=== PATIENT | male | born 1930 | race Caucasian/White ===

== ENCOUNTER 2016-11-27 10:04 | Emergency (ER) | payer MEDICARE, OTHER ==
--- NOTE | 2016-11-27 11:10 | XRAY Preliminary Report ---
Exam: XR Foot 3 View RT IMPRESSION: 1. Mild first metatarsal phalangeal joint osteoarthritis. 2. 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 3. No acute fracture or dislocation. [facility] SITE ID: [id number]
--- NOTE | 2016-11-27 11:13 | XRAY Report ---
EXAM: RIGHT FOOT RADIOGRAPHY EXAM DATE: 11/27/2016 10:51 AM. CLINICAL HISTORY: Right foot pain and swelling. COMPARISON: None. TECHNIQUE: 3 views. FINDINGS: Bones: Tiny plantar calcaneal enthesophyte. Joints: Mild first metatarsal phalangeal joint osteoarthritis. Moderate to severe narrowing at the th ird DIP joint and moderate narrowing at the third and fourth PIP joints. Soft Tissues: Normal. No soft tissue swelling. IMPRESSION: 1. Mild first metatarsal phalangeal joint osteoarthritis. 2. 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 3. No acute fracture or dislocation. [facility] Referring Provider Line: [phone] SITE ID: [id number]
--- NOTE | 2016-11-27 12:39 | Ultrasound Report ---
RIGHT LEG VENOUS DUPLEX: 11/27/2016 CLINICAL INDICATION: Right leg swelling. TECHNIQUE: Real-time sonographic vascular imaging was performed by the hot tar roofer through the right leg utilizing both color flow and Doppler spectral analysis. Multiple sales representative groceries static images w ere saved for review. FINDINGS: A right lower extremity venous sonogram is performed revealing the common femoral, superfic ial femoral, profunda femoris, and popliteal veins to be adequately visualized without intraluminal d efects. There is normal venous compression, augmentation, phasicity, and spontaneity of venous flow. In the calf, the visualized more cephalad portions of posterior tibial and peroneal veins are grossl y compressible, without filling defects. IMPRESSION: NO EVIDENCE OF DEEP VENOUS THROMBOSIS. JOB #: [id number] EXT JOB #:[id number]
--- NOTE | 2016-11-27 13:09 | ED Physician Documentation ---
PD HPI LOWER EXT INJURY - Stated complaint Stated Complaint: R FOOT PX/SWOLLEN - Chief complaint Chief Complaint: Ext Problem - History obtained from History obtained from: Patient, Family - History of Present Illness PD HPI LOW EXT INJURY LOCATION: Right, Foot Type of injury: Other (use in the garden) Where injury occurred: Home Timing - onset: How many days ago (4) Timing - duration: Days (4) Timing - details: Gradual onset, Still present Improved by: Rest, Immobilization Worsened by: Moving, Palpating Associated symptoms: Swelling Contributing factors: No: Anticoagulated Similar symptoms before: Has not had sx before Recently seen: Not recently seen - Additional information Additional information: 86 y/o male with a history of hypertension and arthritis who was in his yard on his hands and knees 5 days ago when he went to stand up he got his feet underneath him and feels that this is when he injured his foot. It did not hurt that much initially and over the next for 5 days it started to hurt more he has had a lot of swelling associated with it and he is limping and walking on his heel. He does have pain when he rolls his foot forward and the pain is centered over the metatarsals laterally. Review of Systems Constitutional: denies: Fever Eyes: denies: Decreased vision Ears: denies: Ear pain Nose: denies: Congestion Throat: denies: Sore throat Cardiac: denies: Chest pain / pressure, Palpitations Respiratory: denies: Dyspnea, Cough GI: denies: Abdominal Pain, Nausea, Vomiting : denies: Dysuria Skin: denies: Rash Musculoskeletal: reports: Extremity swelling, Joint swelling, Pain with weight bearing. denies: Neck pain, Back pain Neurologic: denies: Generalized weakness, Focal weakness, Numbness PD PAST MEDICAL HISTORY - Past Medical History Past Medical History: Yes Cardiovascular: Hypertension, High cholesterol - Past Surgical History Past Surgical History: Yes - Present Medications Home Medications: Ambulatory Orders Medication Instructions Recorded Confirmed Aspirin [Aspirin EC] 81 mg PO DAILY 11/27/16 11/27/16 Atorvastatin Calcium [Lipitor] 80 mg PO DAILY 11/27/16 11/27/16 Lisinopril 30 mg PO DAILY 11/27/16 11/27/16 - Allergies Allergies/Adverse Reactions: Allergies Allergy/AdvReac Type Severity Reaction Status Date / Time No Known Drug Allergies Allergy Verified 11/27/16 10:12 - Social History Does the pt smoke?: No Smoking Status: Never smoker Does the pt drink ETOH?: Yes Does the pt have substance abuse?: No PD ED PE NORMAL - Vitals Vital signs reviewed: Yes (hypertensive ) - General General: No acute distress, Well developed/nourished - HEENT HEENT: Atraumatic, PERRL - Respiratory Respiratory: No respiratory distress - Derm Derm: Normal color, Warm and dry, No rash - Extremities Extremities: Other (There is swelling to the right foot in general and tenderness to the dorsum of the right foot laterally There is no crepitence and no bruising. There is erythema extending to the ankle and no lymphangitic streaking. ) - Neuro Neuro: No motor deficit, No sensory deficit - Psych Psych: Normal mood, Normal affect Results - Vitals Vitals: Vital Signs - 24 hr 11/27/16 10:10 Temperature 36.5 C Heart Rate 75 Respiratory 16 Rate Blood Pressure 168/72 H O2 Saturation 97 Oxygen O2 Source Room air - Rads (name of study) Three-view foot right Radiology: Prelim report reviewed (Impression: 1. First metatarsal phalangeal joint osteoarthritis. 2. 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 3.No acute fracture or dislocation.), EMP read indepedently, See rad report Duplex veins right Radiology: Prelim report reviewed (Impression: No DVT.), EMP read indepedently, See rad report PD MEDICAL DECISION MAKING - ED course Complexity details: reviewed results, re-evaluated patient, considered differential, d/w patient, d/w family ED course: 86-year-old male with history of hypertension and arthritis is coming to the emergency department today with a sore right foot with swelling. Swelling was general and my concern was for the possibility of DVT. A ultrasound of the leg was obtained without evidence of DVT. X-ray without evidence of fracture. The patient does have pain when he attempts to ambulate and the pain is centered in the same spot each time. This is more suggestive of a musculoskeletal injury and consistent with the patient's thought of what his injury is. He is instructed to reduce his weightbearing in general to use his cane as needed and to expect resolution in 10-14 days. Departure - Departure Disposition: 01 Home, Self Care Clinical Impression: Right foot sprain Qualifiers: Encounter type: initial encounter Qualified Code(s): S93.601A - Unspecified sprain of right foot, initial encounter Condition: Stable Instructions: ED Sprain Foot Follow-Up: Adeola Dinero MD [Primary Care Provider] - [facility] [Provider Group]
[2016-11-27 13:13] VITALS: BP 141/74
== END 2016-11-27 13:22 | disposition home or self-care (01) ==
LOC: ED 10:04
DX: S93.601A Unspecified sprain of right foot, initial encounter (principal); X50.1XXA Overexertion from prolonged static or awkward postures, initial encounter; Y93.H2 Activity, gardening and landscaping; Y92.017 Garden or yard in single-family (private) house as the place of occurrence of the external cause; I10 Essential (primary) hypertension; M19.90 Unspecified osteoarthritis, unspecified site; Z79.82 Long term (current) use of aspirin; E78.00 Pure hypercholesterolemia, unspecified
CPT/HCPCS: 99283

== ENCOUNTER 2017-08-04 12:21 | Observation (INO) | payer MEDICARE, OTHER ==
--- NOTE | 2017-08-04 13:39 | ED Physician Documentation ---
History of Present Illness - Stated complaint Stated Complaint: POTASSIUM HIGH - Chief complaint Chief Complaint: General - History obtained from History obtained from: Patient - History of Present Illness Timing: Yesterday Pain level max: 4 Pain level now: 3 Improved by: nothing Worsened by: nothing - Additonal information Additional information: Patient is an 87 year old male with a history of B hydronephrosis, underwent B ureteral stents last week at [facility] for this. Had a antonio in place, and this was removed yesterday. Difficulty voiding since antonio removal. Talked with his urologist today who told him to come here for a antonio. Also noted to have elevated potassium and creatinine on outpatient lab draw. States had a syncopal event today during urination and straining. Review of Systems Ten Systems: 10 systems reviewed and negative Constitutional: denies: Fever, Chills Ears: denies: Ear pain Nose: denies: Rhinorrhea / runny nose Throat: denies: Sore throat Cardiac: denies: Chest pain / pressure Respiratory: denies: Cough GI: denies: Abdominal Pain, Nausea, Vomiting, Diarrhea Skin: denies: Rash Musculoskeletal: denies: Neck pain, Back pain Neurologic: denies: Headache PD PAST MEDICAL HISTORY - Past Medical History Past Medical History: Yes Cardiovascular: Hypertension, High cholesterol - Past Surgical History Past Surgical History: Yes - Present Medications Home Medications: Ambulatory Orders Medication Instructions Recorded Confirmed Aspirin [Aspirin EC] 81 mg PO DAILY 11/27/16 08/04/17 Atorvastatin Calcium [Lipitor] 80 mg PO DAILY 11/27/16 08/04/17 Cetirizine [ZyrTEC] 10 tab PO QPM 08/04/17 08/04/17 Finasteride 5 mg PO DAILY 08/04/17 08/04/17 Lisinopril 20 mg PO DAILY 08/04/17 08/04/17 Tamsulosin HCl [Flomax] 0.4 mg PO DAILY 08/04/17 08/04/17 - Allergies Allergies/Adverse Reactions: Allergies Allergy/AdvReac Type Severity Reaction Status Date / Time No Known Drug Allergies Allergy Verified 11/27/16 10:12 - Social History Does the pt smoke?: No Smoking Status: Never smoker Does the pt drink ETOH?: Yes Does the pt have substance abuse?: No PD ED PE NORMAL - Vitals Vital signs reviewed: Yes - General General: Alert and oriented X 3, No acute distress - HEENT HEENT: PERRL, Moist mucous membranes, Pharynx benign - Neck Neck: Supple, no meningeal sign - Cardiac Cardiac: RRR, Strong equal pulses - Respiratory Respiratory: No respiratory distress, Clear bilaterally - Abdomen Abdomen: Soft, Non tender, Non distended - Back Back: No CVA TTP - Derm Derm: Warm and dry - Extremities Extremities: No edema - Neuro Neuro: Alert and oriented X 3, biochemistry professor 2-12 intact, No motor deficit, No sensory deficit, Normal speech - Psych Psych: Normal mood, Normal affect Results - Vitals Vitals: Vital Signs - 24 hr 08/04/17 08/04/17 12:30 14:47 Temperature 36.1 C L Heart Rate 70 67 Respiratory 18 23 Rate Blood Pressure 146/58 H 131/84 H O2 Saturation 97 100 Oxygen O2 Source Room air - EKG (time done) 1412 Rate: Rate (enter#) (60) Rhythm: NSR [place]: Anterior hemiblock (LAFB) Intervals: RBBB QRS: LVH Compare to prior EKG: Old EKG unavailable - Labs Labs: Laboratory Tests 08/04/17 08/04/17 08/04/17 13:21 13:21 13:35 WBC 10.2 RBC 3.35 L Hgb 11.3 L Hct 33.9 L MCV 101.3 H MCH 33.7 H MCHC 33.3 RDW 12.9 Plt Count 218 MPV 9.2 Neut # 7.0 H Lymph # 2.1 [place] # 0.9 Eos # 0.3 Baso # 0.0 Absolute Nucleated RBC 0.00 Nucleated RBC % 0.0 Sodium 136 Potassium 6.0 H* Chloride 112 H Carbon Dioxide 15 L Anion Gap 9.0 BUN 51 H Creatinine 2.7 H Estimated GFR (MDRD) 22 L Glucose 110 H Calcium 8.6 Total Bilirubin 0.6 AST 30 ALT 34 Alkaline Phosphatase 94 Total Protein 7.0 Albumin 3.6 Globulin 3.4 Albumin/Globulin Ratio 1.1 Lipase 37 Urine Color YELLOW Urine Clarity HAZY Urine pH 5.5 Ur Specific [place] 1.015 Urine Protein 30 H Urine Glucose (UA) NEGATIVE Urine Ketones NEGATIVE Urine Occult Blood LARGE H Urine Nitrite NEGATIVE Urine Bilirubin NEGATIVE Urine Urobilinogen 0.2 (NORMAL) Ur Leukocyte Esterase SMALL H Urine RBC 11-25 H Urine WBC 11-25 H Ur Squamous Epith Cells NONE SEEN Urine Bacteria Moderate H Ur Microscopic Review INDICATED Urine Culture Comments INDICATED PD MEDICAL DECISION MAKING - ED course Complexity details: reviewed results, re-evaluated patient, considered differential, d/w patient, d/w family, d/w sap business objects consultant ED course: Discussed with 1420 Dr. Nehemiah Lyle (urology at [facility]) [phone] (cell) and recommends IV hydration, replace antonio, insulin, glucose and kayexelate. Recommends obs overnight and if improves as expected d/c home for follow up. If fails to improve, consider transfer to [facility]. Cr 2.9 and K+ was 7.[address] Duncan, hospitalist who accepts. This document was made in part using voice recognition software. While efforts are made to proofread this document, sound alike and grammatical errors may occur. Departure - Departure Disposition: ED Place in Observation Clinical Impression: Hyperkalemia, Urinary retention, Acute renal insufficiency Condition: Stable
[2017-08-04 13:47] LABS: BASOPHILS % (AUTO) 0.5 %; EOSINOPHILS # (AUTO) 0.3 10^3/uL (0.0-0.7); EOSINOPHILS % (AUTO) 2.5 %; HGB - HEMOGLOBIN 11.3 g/dL (14.0-18.0); LYMPHOCYTES # (AUTO) 2.1 10^3/uL (1.5-3.5); LYMPHOCYTES % (AUTO) 20.1 %; MEAN CORPUSCULAR HEMOGLOBIN 33.7 pg (27.0-31.0); MEAN CORPUSCULAR HGB CONC 33.3 g/dL (32.0-36.0); MEAN CORPUSCULAR VOLUME 101.3 fL (80.0-94.0); MEAN PLATELET VOLUME 9.2 fL (7.4-11.4); MONOCYTES # (AUTO) 0.9 10^3/uL (0.0-1.0); MONOCYTES % (AUTO) 8.5 %; NEUTROPHILS % (AUTO) 68.4 %; PLT - PLATELET COUNT 218 10^3/uL (130-450); RED BLOOD COUNT 3.35 10^6/uL (4.70-6.10); RED CELL DISTRIBUTION WIDTH 12.9 % (12.0-15.0); WHITE BLOOD COUNT 10.2 x10^3/uL (4.8-10.8)
[2017-08-04 14:10] LABS: ALBUMIN 3.6 g/dL (3.2-5.5); ALBUMIN/GLOBULIN RATIO 1.1 (1.0-2.2); BILIRUBIN,TOTAL 0.6 mg/dL (0.2-1.0); CALCIUM 8.6 mg/dL (8.5-10.3); CREATININE 2.7 mg/dL (0.6-1.2)
[2017-08-04] MEDS ORDERED: DEXTROSE 50% ABBOJECT 25 GM/50 ML SYRINGE IVP STA (14:18)
[2017-08-04] MEDS ORDERED: INSULIN REGULAR HUMAN 100 UNIT/1 ML 10 ML MDV SUBQ STA (14:18)
[2017-08-04] MEDS ORDERED: SODIUM CHLORIDE 0.9% 1,000 ML IV ONE ×2 (14:19→14:28)
[2017-08-04] MEDS ORDERED: SODIUM POLYSTYRENE SULFONATE 15 GM/60 ML BOTTLE PO STA (14:28)
[2017-08-04 14:45] LABS: BILIRUBIN,URINE NEGATIVE (NEGATIVE); GLUCOSE, URINE (UA) NEGATIVE (NEGATIVE); KETONES,URINE (UA) NEGATIVE (NEGATIVE); LEUKOCYTE ESTERASE, URINE SMALL (NEGATIVE); NITRITE,URINE NEGATIVE (NEGATIVE); OCCULT BLOOD,URINE LARGE (NEGATIVE); PH,URINE 5.5 PH (5.0-7.5); PROTEIN,URINE 30 mg/dL (NEGATIVE); UROBILINOGEN,URINE 0.2 (NORMAL) E.U./dL (NORMAL)
[2017-08-04 14:47] LABS: CLARITY,URINE HAZY (CLEAR)
[2017-08-04] MEDS ORDERED: SODIUM CHLORIDE FLUSH 0.9% 10 ML SYRINGE IVP PRN (14:55)
[2017-08-04] MEDS ORDERED: ONDANSETRON 4 MG/2 ML VIAL IVP PRN (14:55)
[2017-08-04] MEDS ORDERED: ONDANSETRON ODT 4 MG TABLET TL PRN (14:55)
[2017-08-04] MEDS ORDERED: ACETAMINOPHEN 325 MG TABLET PO PRN (14:55)
[2017-08-04] MEDS ORDERED: oxyCODONE 5 MG TABLET PO PRN (14:55)
[2017-08-04 14:57] LABS: BACTERIA,URINE Moderate /HPF (None Seen); SQUAMOUS EPITHELIAL CELL,UR NONE SEEN (<= Few)
[2017-08-04 15:48] LABS: CALCIUM 8.2 mg/dL (8.5-10.3); CREATININE 2.6 mg/dL (0.6-1.2)
[2017-08-04] MEDS: SODIUM CHLORIDE FLUSH 0.9% 10 ML SYRINGE IVP SCH (16:25)
[2017-08-04] MEDS: SODIUM CHLORIDE 0.9% 1,000 ML IV SCH (16:25)
[2017-08-04] MEDS: amLODIPine 5 MG TABLET PO SCH (16:28)
[2017-08-04 19:34] LABS: CREATININE 2.4 mg/dL (0.6-1.2)
--- NOTE | 2017-08-04 20:43 | HISTORY & PHYSICAL EXAMINATION ---
DATE OF SERVICE: 08/04/2017 Physician: Lori Duncan MD PRIMARY CARE PROVIDER: Adeola Dinero M.D., phone number [phone] ADMITTING PROVIDER: Lori Duncan M.D. CHIEF COMPLAINT: Told to come in by urologist. HISTORY OF PRESENT ILLNESS: The patient is an 87-year-old Russian white male who has been having problems with his prostate lately. He has been placed on finasteride and Flomax. He had a Ann catheter placed because of lower urinary tract symptoms of obstruction. Because of hydronephrosis, he had bilateral ureteral stents put in. He had the Ann removed yesterday by his urologist, Dr. Pascual. Between yesterday and today, he has been unable to urinate. Today, while straining to urinate, he had an episode of syncope. His care providers called Dr. Pascual and Dr. Pascual asked him to come to the emergency room. Ostensibly, he was to get a Ann replaced. However, in the outpatient labs that he had done yesterday, his potassium was quite elevated and Dr. Pascual asked us to repeat his potassium here. The patient had a Ann put back in. Potassium is [address] Brown has evaluated him and spoken to Dr. Pascual. He received insulin, glucose, Kayexalate and from 1:30 in the afternoon to 3:30 in the afternoon, his potassium went from 6 to 5.5. BUN is 51 and creatinine is 2.7 and with the Ann, he has gone down to 51 and 2.6. In speaking to Dr. Pascual and updating him on the patient's condition, Dr. Pascual would like the patient to be placed in observation. Continue to monitor the potassium. If after overnight observation and treatment the potassium is still elevated tomorrow, Dr. Pascual is requesting transfer to [place]. On review of systems, the patient says that he has been really bothered by this prostate. It is just driving him nuts. He has no fever or chills. No recent change in appetite, but he is bothered by a subtle decrease in endurance over the last 6 months. One of his sons is at the bedside and confirms that dad seems to have lost a lot of his stamina over the last 6 months. The patient cannot put his finger on it. He denies chest pain, edema, palpitations, angina, cough, but he used to be able to work around the house, do quite a bit of odds and ends without having to stop. Now, he has to stop after 1 or 2 blocks, wait 5 minutes to catch his breath, go another 1 or 2 blocks, wait 5 minutes to catch his breath. He really noticed it on the trip to [place] a month ago. In just the walk [place], it was quite an effort because of fatigue and shortness of breath. He has not shared this with his primary care provider. In discussing this in front of his son, his son asked him if it has anything to do with the hip. Three years ago, he had a hip replacement and it was noted that the patient stopped his 2 to 3-mile walks at that time because of hip pain. The patient maintains that he does not have hip pain and that is not what is limiting his ability to walk. It just seems to be more generalized fatigue. PAST MEDICAL HISTORY 1. Hypertension. 2. Benign prostatic hypertrophy with lower urinary tract symptoms of obstruction. 3. Hyperlipidemia. 4. Generalized pruritus. 5. Osteoarthritis with total hip replacement 3 years ago. 6. History of bilateral hernia repairs in the past. ALLERGIES: NO KNOWN DRUG ALLERGIES. MEDICATIONS 1. Atorvastatin 80 mg a day. 2. Aspirin 81 mg a day. 3. Cetirizine 10 mg a day. 4. Finasteride 5 mg a day. 5. Lisinopril 20 mg a day. 6. Tamsulosin 0.4 mg a day. 7. Triamcinolone cream 0.1% for itching. SOCIAL HISTORY: He lives in [place] most of his life. He moved over to the [place] about 25 years ago. He lives with his . Son started living with them off and on since 2008 and the son says he spends most of days with parents now. Initially, they did not need much help and he was there just as a lifestyle arrangement but in the last few months, he has been doing more and more yard work and more and more the physical labor around the house because they are unable to do it between their age and infirmity, but the patient himself is still completely capable with regard to activities of daily living, still drives a car. Son says that mentation is still quite good. He smoked for about a week at the age of 17. He has never smoked since. He used to drink about 1 Highball a day but 6 months ago, he has lost the taste for it. He says he probably drinks 1 Highball 2-3 times a week now. He denies any problems with alcohol abuse and the son confirms that. He has no history of recreational substance abuse. He used to work in [employer]. 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 FAMILY HISTORY: Dad in his 80s. The patient thinks it was just old age and he got old enough to just get tired and . Mom in her 70s of complications of smoking and old age. She lived in a group home facility for several years. One sister of lung cancer and was a heavy smoker. Of his 3 children, they are all healthy without any high blood pressure, diabetes, cancer, thyroid disease. REVIEW OF SYSTEMS CONSTITUTIONAL: He has no constitutional complaints of unexpected weight changes, fevers, or sweats. Noted is a subtle decrease in endurance and stamina over the last 6-9 months. ENT: He wears glasses, but denies glaucoma or cataracts. He has no problems with his teeth. Swallowing. Denies blurred vision, headaches, problems swallowing. No facial dysesthesia. PULMONARY: He denies coughing, wheezing, chest congestion or phlegm. He has no history of asthma or lung disease. CARDIAC: He denies edema, orthopnea. Subtle decrease in stamina over the last few months as noted above. Denies palpitations, history of valvular heart disease. GASTROINTESTINAL: He denies any change in bowel habits. He has no blood in his stool. No abdominal bloating or distention. No abdominal pain. Denies dyspepsia. GENITOURINARY: Positive for urgency, frequency, decreased stream. MUSCULOSKELETAL: Without any severe joint complaints. While he does have stiffness in his joints, especially in his hips first thing in the day, it does not limit him. PSYCHIATRIC: He denies depression, anxiety. DERMATOLOGIC: He denies any new rashes, moles, but is plagued by itching skin off and on in waves for the last few months. CENTRAL NERVOUS SYSTEM: Syncope has been present off and on. Ten to twelve years ago, he and his family were docking a boat. It was a stressful moment and in the midst of it, he passed out, suddenly and without warning. His son who was sitting next to him was able to catch him, laid him gently on the ground. Fifteen seconds later, he woke up and was perfectly fine, and they never needed to call an ambulance and he never had an evaluation. In 2011 , he was lifting an engine into a boat, straining quite heavily and then also had sudden syncope. Today, he had sudden syncope and straining to try to go to the bathroom. Today's was more of a gentle loss of vision, people's voices faded away, but he was never completely out. He denies any history of seizures. Memory loss is not a problem. No focal deficits have occurred, transient or otherwise. No change in vision. No blurred vision. PHYSICAL EXAMINATION VITAL SIGNS: Temperature is 36.4, pulse is 79, blood pressure 152/58, respirations 20, 97% on room air. GENERAL: He is a pleasant, elderly, white male who looks his stated age, alert , in no acute distress. HEAD AND NECK: Unremarkable. He has diffusely thinning hair, wearing glasses, normal speech pattern. No facial asymmetry. Pupils reactive. Tongue midline. Gag intact. Neck is supple. No goiter or bruits. LUNGS: Clear to auscultation and percussion and he has no increased respiratory effort. HEART: PMI is normally placed with a regular rate and rhythm and he does not have any murmurs, rubs, or gallops. ABDOMEN: Soft, nontender. No organomegaly, normal bowel sounds. EXTREMITIES: Warm and he has no clubbing, cyanosis, or edema. NEUROLOGIC: He is alert and oriented to person, place and time. Although he denies deafness a few times, I have to repeat myself for him to hear me. He follows a conversation normally and is able to answer questions and provide a lucid history. He follows 2-step commands easily. Upper and lower strength testing is symmetrical and normal for a man his age. There are no tremors. Cranial nerves II-XII appear grossly intact. LABORATORY DATA: Sodium 136, potassium 6, chloride 112, carbon dioxide 15, BUN 51, creatinine 2.7, random glucose 110. Liver enzymes normal. Repeat potassium 3 hours later is 5.5, BUN 51, creatinine 2.6. 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 Inverted T waves in lead 3 and V1. No peak T waves. ASSESSMENT AND PLAN 1. Hyperkalemia. The hyperkalemia is in the face of lower urinary tract obstruction requiring ureteral stents and Ann. Treatment has included Ann replacement, Kayexalate , insulin, and glucose. Plan: Place the patient in observation. ATTESTATION: The patient will be admitted less than 96 hours. Repeat labs in 6 hours. If potassium is greater than 5.5, we will repeat Kayexalate, glucose, and insulin. 2. Acute kidney injury. It is unclear what his baseline status is. He does not have previous records with us. Rather, they are not available and that his last visit was in 2011 and those records are in storage, not in the electronic medical record. Nevertheless, we will give 1 liter of fluid overnight, recheck basic metabolic panel in the morning to see if his acute kidney injury responds to intravenous fluids and Ann. 3. Hypertension. I would like him not to take his lisinopril because of the association with hyperkalemia. He says that he has been taking it in about 3 days. When he was in the urologist's office, his blood pressure was quite low and even his urologist wondered if he should stay on the lisinopril. At this time, we will change the patient over to [facility] for blood pressure control. He can discuss it with Dr. Dinero when he sees her next. 4. Benign prostatic hypertrophy with lower urinary tract symptoms of obstruction. Ann has been replaced at his urologist's request. The patient will be continued on tamsulosin and he will see his urologist in the outpatient setting in followup. 5. History of syncope. I do not hear the murmur of aortic stenosis. He does not appear to have second or third-degree block on telemetry or EKG. Some of his syncope seems to be in association with heavy lifting or straining. We will order an echocardiogram, especially in view of the fact that the patient is describing a subtle decrease in stamina over the last few months associated with exertion. 6. FULL CODE STATUS. He has not really thought about end of life care, what would happen if he were to be disabled, not be able to return to his former baseline. As such, by default, he will be full code, but this has started the conversation between he and his son and most likely will extend to talking to his about what does he want in the event of a cardiac arrest. 7. Deep venous thrombosis prophylaxis with JESSE gar. TD: 08/04/2017 16:54 TAMMY
[2017-08-04] MEDS ORDERED: CETIRIZINE 10 MG TABLET PO SCH (21:00)
[2017-08-05] MEDS: SODIUM CHLORIDE 0.9% 1,000 ML IV SCH (01:14)
[2017-08-05] MEDS: SODIUM CHLORIDE FLUSH 0.9% 10 ML SYRINGE IVP SCH ×2 (05:39→08:41)
[2017-08-05 06:24] LABS: CREATININE 2.1 mg/dL (0.6-1.2)
--- NOTE | 2017-08-05 07:59 | Discharge Plan ---
Discharge Plan Disposition: 01 Home, Self Care Condition: Good Prescriptions: amLODIPine [Norvasc] 5 mg PO DAILY #30 tablet Diet: Regular Activity Restrictions: Activity as Tolerated Shower Restrictions: No Driving Restrictions: No Additional Instructions or Follow Up instructions: You are placed in observation because you were unable to urinate and needed a Ann catheter to be replaced. Apparently you have had one removed the day before. Your urologist asked you to come to the hospital to get this done. Your urologist also found to have an exceedingly high, dangerous, potassium level. We treated you for that. When you first came in your BUN and creatinine were 51 and 2.7. This morning, before discharge, you were 41 and 2.1. That is an improvement. Your potassium was initially 6 and went down to 4.9. Because your blood pressure drug, Lisinopril, can lead to high potassium, I am stopping it. So your lisinopril is discontinued and, in replacement, you can take a drug called amlodipine 5 mg a day. Please see your primary care provider, Dr. Dinero, for follow-up of your potassium and your blood pressure. I also ordered a heart ultrasound since you have had 3 episodes of passing out in the past. Overnight, the telemetry monitoring of your heart was normal sinus rhythm. Please see your urologist, Dr. Morin in follow-up for your prostate and the use of a Ann catheter. No Smoking: If you smoke, Please STOP! Call for help. Follow-up with: Nehemiah Pascual DDS [Primary Care Provider] - Adeola Dinero MD [Physician No Access] -
[2017-08-05] MEDS: amLODIPine 5 MG TABLET PO SCH (08:41)
[2017-08-05 08:56] VITALS: BP 120/42
[2017-08-05] MEDS ORDERED: ATORVASTATIN 40 MG TABLET PO SCH (09:00)
[2017-08-05] MEDS ORDERED: FINASTERIDE 5 MG TABLET PO SCH (09:00)
[2017-08-05] MEDS ORDERED: ASPIRIN EC 81 MG TABLET PO SCH (09:00)
[2017-08-05] MEDS ORDERED: POLYETHYLENE GLYCOL 3350 17 GM PACKET PO SCH (09:00)
[2017-08-05] MEDS ORDERED: TAMSULOSIN 0.4 MG CAPSULE PO SCH (09:00)
--- NOTE | 2017-08-06 06:43 | DISCHARGE SUMMARY ---
Physician: Lori Duncan MD DATE OF ADMISSION: 08/04/2017 DATE OF DISCHARGE: 08/05/2017 DISCHARGE DIAGNOSES 1. Hyperkalemia. 2. Acute kidney injury secondary to postobstructive uropathy. 3. Hypertension. 4. Benign prostatic hypertrophy with lower urinary tract symptoms of obstruction. 5. History of syncope PRINCIPAL PROCEDURES 1. Ann catheter placed again. 2. Glucose, insulin, Kayexalate for hyperkalemia. 3. Echocardiogram, preliminary, and must be reviewed with primary care provider, shows an ejection fraction of 65-70%, normal atrial sizes, mild aortic stenosis with a peak mean pressure gradient of 23 mm/14 mmHg. Aortic valve area by continuity 1.8. DISCHARGE MEDICATIONS 1. Lisinopril is discontinued. 2. Norvasc 5 mg p.o. daily. 3. Aspirin 81 daily. 4. Lipitor 80 mg daily. 5. Cetirizine 10 mg p.o. daily. 6. Finasteride 5 mg p.o. daily. 7. Tamsulosin 0.4 mg p.o. daily. HOSPITAL COURSE: The patient came to the hospital because he passed out trying to pee. He apparently has been having problems with benign prostatic hypertrophy and lower urinary tract symptoms of obstruction. He is followed by urologist and had a Ann in place. He was seen by his urologist on the day before admission, and Ann was discontinued. Labs were done. Between seeing the urologist and coming back to the [place], the patient has been unable to pee. On the day of admission, he was struggling to urinate, trying to force it and strain, when he passed out. This is his third episode of syncope in 10 years. One episode of syncope was when he was standing on a boat dock, and it was a particularly stressful attempt at getting the boat to the dock, and he passed out from the stress. He was only out for 15 seconds and regained complete recovery. He then passed out in 2011 when he was lifting a boat engine. As he grunted and strained, he suddenly lost consciousness. Today he was trying to pee and again he lost consciousness. He called his urologist's office. The urologist reviewed his notes from the day before where labs showed him to have a potassium that was severely elevated. The urologist felt the patient should come to the emergency room for the high potassium, and getting a Ann. In our emergency room, he was afebrile, normotensive, alert, oriented. Blood pressure was 152/58. Dr. Goff was the emergency room doctor who evaluated the patient. It was Dr. Goff who also spoke to the urologist, Dr. Pascual, to get the story. The patient was placed in observation at Dr. Pascual's request. After intervening in the emergency room for the potassium, he received glucose, insulin and Kayexalate. Potassium was initially 6 and down to 5.5. Six hours later, his potassium was down to 5. He is noted to have acute kidney injury from a postobstructive uropathy. Admission BUN was 51, creatinine 2.7. After Ann, and on discharge, BUN was 41 and creatinine 2.1. Because of syncope history, an echocardiogram was done and the above findings of mild to moderate aortic stenosis found. During his stay on telemetry, there were no arrhythmias. There were no peaked T-wave changes on EKG. The patient was anxious to be discharged. He was discharged in stable condition. PHYSICAL EXAMINATION VITAL SIGNS: Temperature of 36.4, pulse 58, blood pressure 120/42, respirations 18, and 92% on room air. GENERAL: He is a tall, alert, [place] white male who looks his stated age. HEAD AND NECK: Unremarkable. Neck is supple, no goiter or bruits. LUNGS: Clear to auscultation and percussion. There is no increased respiratory effort getting up out of bed. He does note that for the last few months he has been having decreasing stamina, decreasing energy with a subtle decrease in cardiovascular endurance. ABDOMEN: Benign in that it is soft, nontender. No organomegaly. GENITOURINARY: Ann is draining clear yellow urine. EXTREMITIES: Warm without clubbing, cyanosis or edema. I am asking the patient to please follow up with his primary care provider, Dr. Dinero. I have stopped his lisinopril and started Norvasc for his blood pressure in order to avoid further hyperkalemic complications. He will need a blood pressure check. He will need his potassium repleted. More than anything, we need to verify that his BUN and creatinine really are just due to acute kidney injury and not chronic kidney disease. I have also asked him to follow up with Dr. Pascual for Ann care. cc: Adeola Dinero MD TD: 08/05/2017 10:50
== END 2017-08-05 10:00 | disposition home or self-care (01) ==
LOC: ED 12:21 → MS2 14:55
PROVIDERS: ADMIT Specialist; ATTEND Specialist
DX: E87.5 Hyperkalemia (principal); T46.4X5A Adverse effect of angiotensin-converting-enzyme inhibitors, initial encounter; N17.9 Acute kidney failure, unspecified; N40.1 Benign prostatic hyperplasia with lower urinary tract symptoms; N13.8 Other obstructive and reflux uropathy; R55 Syncope and collapse; I35.0 Nonrheumatic aortic (valve) stenosis; N13.30 Unspecified hydronephrosis; I10 Essential (primary) hypertension; E78.5 Hyperlipidemia, unspecified; H91.90 Unspecified hearing loss, unspecified ear; Z96.0 Presence of urogenital implants; Z79.82 Long term (current) use of aspirin; Z79.899 Other long term (current) drug therapy; Z96.649 Presence of unspecified artificial hip joint
CPT/HCPCS: 36415; 51702; 80048; 80053; 81001; 83690; 85025; 87086; 93005; 93306; 96360; 96361; 99284; 99285; A9270; G0378; J1815; 81003; 99283

== ENCOUNTER 2017-08-10 09:23 | Emergency (ER) | payer OTHER ==
[2017-08-10 10:11] LABS: BASOPHILS % (AUTO) 0.2 %; HGB - HEMOGLOBIN 10.1 g/dL (14.0-18.0); LYMPHOCYTES # (AUTO) 1.7 10^3/uL (1.5-3.5); LYMPHOCYTES % (AUTO) 11.1 %; MEAN CORPUSCULAR HEMOGLOBIN 33.3 pg (27.0-31.0); MEAN CORPUSCULAR HGB CONC 33.5 g/dL (32.0-36.0); MEAN CORPUSCULAR VOLUME 99.4 fL (80.0-94.0); MEAN PLATELET VOLUME 7.9 fL (7.4-11.4); MONOCYTES # (AUTO) 1.7 10^3/uL (0.0-1.0); MONOCYTES % (AUTO) 11.5 %; NEUTROPHILS # (AUTO) 11.6 10^3/uL (1.5-6.6); NEUTROPHILS % (AUTO) 77.2 %; PLT - PLATELET COUNT 226 10^3/uL (130-450); RED BLOOD COUNT 3.03 10^6/uL (4.70-6.10); RED CELL DISTRIBUTION WIDTH 12.5 % (12.0-15.0); WHITE BLOOD COUNT 15.1 x10^3/uL (4.8-10.8)
--- NOTE | 2017-08-10 10:23 | ED Physician Documentation ---
History of Present Illness - Stated complaint Stated Complaint: WEAKNESS/FEVER/DIZZINESS - Chief complaint Chief Complaint: General - History obtained from History obtained from: Patient, Family () - Additonal information Additional information: The patient is an 87-year-old male who passed out last night while sitting in his recliner. He reports having decreased energy, but denies chest pain, shortness of breath, fever, nausea or vomiting. 2 weeks ago he underwent bilateral ureteral stent placement at [facility] for hydronephrosis with acute renal failure. He was discharged with Ann catheter, that was subsequently removed one week ago. 6 days ago he was seen in the emergency department here with urinary retention and hyperkalemia. His Ann catheter was replaced at that time and he was placed in observation overnight for treatment of his hyperkalemia. He had also had a syncopal episode prior to coming to the emergency department one week ago. A cardiac echo was performed, revealing mild to moderate aortic stenosis. At the time of his discharge from the hospital 5 days ago his BUN had improved from 51 down to 41, and his creatinine had improved from 2.7 down to 2.1. His potassium had improved from 6.0 down to 5.0. He denies any symptoms currently, but states he was told to come to the emergency department to get his potassium checked. Review of Systems Constitutional: reports: Fatigue. denies: Fever, Chills Eyes: denies: Decreased vision Ears: denies: Tinnitus/ringing Nose: denies: Congestion Throat: denies: Sore throat Cardiac: denies: Chest pain / pressure Respiratory: denies: Dyspnea, Cough GI: denies: Abdominal Pain, Nausea, Vomiting : reports: Other (Ann catheter in place.). denies: Dysuria Skin: denies: Rash Musculoskeletal: denies: Back pain, Extremity swelling Neurologic: denies: Focal weakness, Numbness, Headache PD PAST MEDICAL HISTORY - Past Medical History Cardiovascular: Hypertension, High cholesterol Respiratory: None Neuro: None Endocrine/Autoimmune: None GI: None : Retention, Renal insuffiency, Other HEENT: None Derm: None - Past Surgical History Past Surgical History: Yes Other past surgical history: Bilateral ureteral stents. - Present Medications Home Medications: Ambulatory Orders Medication Instructions Recorded Confirmed Aspirin [Aspirin EC] 81 mg PO DAILY 11/27/16 08/04/17 Atorvastatin Calcium [Lipitor] 80 mg PO DAILY 11/27/16 08/04/17 Cetirizine [ZyrTEC] 10 tab PO QPM 08/04/17 08/04/17 Finasteride 5 mg PO DAILY 08/04/17 08/04/17 Tamsulosin HCl [Flomax] 0.4 mg PO DAILY 08/04/17 08/04/17 amLODIPine [Norvasc] 5 mg PO DAILY #30 tablet 08/05/17 Cefuroxime Axetil [Cefuroxime] 250 mg PO BID #14 tablet 08/10/17 - Allergies Allergies/Adverse Reactions: Allergies Allergy/AdvReac Type Severity Reaction Status Date / Time No Known Drug Allergies Allergy Verified 08/10/17 09:38 - Social History Does the pt smoke?: No Smoking Status: Never smoker Does the pt drink ETOH?: Yes Does the pt have substance abuse?: No PD ED PE NORMAL - Vitals Vital signs reviewed: Yes (mild systolic hypertension.) - General General: Alert and oriented X 3, Well developed/nourished, Other (Appears stated age.) - HEENT HEENT: Atraumatic, Moist mucous membranes, Pharynx benign - Neck Neck: No adenopathy, No JVD - Cardiac Cardiac: RRR - Respiratory Respiratory: No respiratory distress, Clear bilaterally - Abdomen Abdomen: Soft, Non tender - Male Male : Other (Ann catheter with leg bag in place.) - Back Back: No CVA TTP - Derm Derm: No rash - Extremities Extremities: No edema, No calf tenderness / cord - Neuro Neuro: Alert and oriented X 3, No motor deficit, No sensory deficit Results - Vitals Vitals: Oxygen O2 Source Room air - EKG (time done) 09:29 Rate: Rate (enter#) (83) Rhythm: NSR [place]: Anterior hemiblock Intervals: Prolonged IA, RBBB QRS: LVH Ischemia: Non specific changes Compare to prior EKG: Changed from prior EKG (T-waves are slightly more prominent compared to prior EKG of 08/04/2017.) Computer interpretation: Agree with computer - Labs Labs: Microbiology 08/10/17 10:11 Urine Culture - Final Urine,Catheterized Enterococcus Faecalis. Laboratory Tests 08/10/17 08/10/17 08/10/17 10:08 10:08 10:11 WBC 15.1 H RBC 3.03 L Hgb 10.1 L Hct 30.1 L MCV 99.4 H MCH 33.3 H MCHC 33.5 RDW 12.5 Plt Count 226 MPV 7.9 Neut # 11.6 H Lymph # 1.7 [place] # 1.7 H Eos # 0.0 Baso # 0.0 Absolute Nucleated RBC 0.00 Nucleated RBC % 0.0 Manual Slide Review Indicated RBC Morph Micro Appear 1+ ANISOCYTOSIS Sodium 130 L Potassium 4.2 Chloride 104 Carbon Dioxide 17 L Anion Gap 9.0 BUN 41 H Creatinine 1.9 H Estimated GFR (MDRD) 34 L Glucose 136 H Calcium 8.0 L Total Bilirubin 0.7 AST 24 ALT 30 Alkaline Phosphatase 71 Total Protein 6.7 Albumin 3.1 L Globulin 3.6 Albumin/Globulin Ratio 0.9 L Lipase 31 Urine Color YELLOW Urine Clarity CLOUDY Urine pH 6.0 Ur Specific [place] 1.020 Urine Protein 100 H Urine Glucose (UA) NEGATIVE Urine Ketones NEGATIVE Urine Occult Blood LARGE H Urine Nitrite NEGATIVE Urine Bilirubin NEGATIVE Urine Urobilinogen 0.2 (NORMAL) Ur Leukocyte Esterase MODERATE H Urine RBC 6-10 H Urine WBC >25 H Ur Squamous Epith Cells NONE SEEN Urine Bacteria Many H Ur Microscopic Review INDICATED Urine Culture Comments INDICATED PD MEDICAL DECISION MAKING - ED course Complexity details: reviewed old records, reviewed results, re-evaluated patient , considered differential, d/w patient, d/w family, d/w PMD ED course: The patient's presentation is significant for urinary tract infection and a meal with a Ann catheter in place. His presentation does not suggest pyelonephritis or sepsis. His urine is cloudy with greater than 25 white cells per high-powered field and many bacteria. His white blood cell count is elevated at 15.1. His BUN and creatinine are elevated but improved from last week, with BUN 41, creatinine 1.9. His potassium is normal at 4.2. Treatment in the emergency department included administration of Bactrim DS 1 tablet orally. I discussed his condition with his primary physician, Dr. Dinero, who recommended outpatient treatment with cefuroxime. He is being discharged with prescription for cefuroxime. I discussed with him and his the results of his workup, antibiotic treatment and outpatient follow-up, as well as potentially worrisome signs or symptoms that should prompt reevaluation in the emergency department. After he had been discharged, his urologist, Dr. Lyle, returned an earlier page, and I discussed the patient's presentation and anticipated outpatient follow-up with him as well. Departure - Departure Disposition: 01 Home, Self Care Clinical Impression: Indwelling Ann catheter present Urinary tract infection Qualifiers: Urinary tract infection type: acute cystitis Hematuria presence: without hematuria Qualified Code(s): N30.00 - Acute cystitis without hematuria Anemia Qualifiers: Anemia type: unspecified type Qualified Code(s): D64.9 - Anemia, unspecified Condition: Stable Instructions: ED UTI Cystitis Male Follow-Up: Adeola Dinero MD [Physician No Access] - Prescriptions: Cefuroxime Axetil [Cefuroxime] 250 mg PO BID #14 tablet Comments: Take cefuroxime twice daily as prescribed. You can use Tylenol if needed for fever or discomfort. Follow up with your primary physician within 1 week. Call to schedule appointment. Return to the emergency department if you develop fever with shaking chills, persistent vomiting, or otherwise worsening symptoms. Discharge Date/Time: 08/10/17 13:05
[2017-08-10 10:24] LABS: ALBUMIN 3.1 g/dL (3.2-5.5); ALBUMIN/GLOBULIN RATIO 0.9 (1.0-2.2); BILIRUBIN,TOTAL 0.7 mg/dL (0.2-1.0); CREATININE 1.9 mg/dL (0.6-1.2); TOTAL PROTEIN 6.7 g/dL (6.7-8.2)
[2017-08-10 10:31] LABS: RBC MORPHOLOGY (MULTIPLE) 1+ ANISOCYTOSIS (NORMAL)
[2017-08-10 11:00] LABS: BILIRUBIN,URINE NEGATIVE (NEGATIVE); GLUCOSE, URINE (UA) NEGATIVE (NEGATIVE); KETONES,URINE (UA) NEGATIVE (NEGATIVE); LEUKOCYTE ESTERASE, URINE MODERATE (NEGATIVE); NITRITE,URINE NEGATIVE (NEGATIVE); OCCULT BLOOD,URINE LARGE (NEGATIVE); PROTEIN,URINE 100 mg/dL (NEGATIVE); UROBILINOGEN,URINE 0.2 (NORMAL) E.U./dL (NORMAL)
[2017-08-10 11:02] LABS: CLARITY,URINE CLOUDY (CLEAR)
[2017-08-10 11:13] LABS: BACTERIA,URINE Many /HPF (None Seen); SQUAMOUS EPITHELIAL CELL,UR NONE SEEN (<= Few)
[2017-08-10] MEDS ORDERED: SULFAMETH/TRIMETH DS 800/160 MG TABLET PO STA (11:17)
[2017-08-10 13:05] VITALS: BP 141/53
== END 2017-08-10 13:05 | disposition home or self-care (01) ==
LOC: ED 09:23
DX: N30.00 Acute cystitis without hematuria (principal); D64.9 Anemia, unspecified; I45.2 Bifascicular block; I35.0 Nonrheumatic aortic (valve) stenosis; I10 Essential (primary) hypertension; Z79.82 Long term (current) use of aspirin
CPT/HCPCS: 36415; 80053; 81001; 83690; 85025; 87077; 87086; 87181; 93005; 99283; 99284; A9270; 81003

== ENCOUNTER 2018-01-10 10:45 | Emergency (ER) | payer MEDICARE, OTHER ==
--- NOTE | 2018-01-10 11:05 | ED Physician Documentation ---
History of Present Illness - Stated complaint Stated Complaint: ABN LAB - Chief complaint Chief Complaint: Cardiac - History obtained from History obtained from: Patient, Family - History of Present Illness Timing: Today Pain level max: 0 Pain level now: 0 Improved by: nothing Worsened by: nothing - Additonal information Additional information: Patient is an 87-year-old Male who presents to the emergency department after being sent in for hyperkalemia. He is asymptomatic with this. He does not know his medications. He states he has chronic kidney disease but is not on dialysis. He states that there have been no changes to his medications that he is aware of. Review of Systems Ten Systems: 10 systems reviewed and negative Constitutional: denies: Fever, Chills Ears: denies: Ear pain Nose: denies: Rhinorrhea / runny nose, Congestion Cardiac: denies: Chest pain / pressure, Palpitations Respiratory: denies: Dyspnea, Cough GI: denies: Abdominal Pain, Nausea, Vomiting, Diarrhea Skin: denies: Rash Musculoskeletal: denies: Neck pain, Back pain Neurologic: denies: Headache PD PAST MEDICAL HISTORY - Past Medical History Cardiovascular: Hypertension, High cholesterol Respiratory: None Neuro: None Endocrine/Autoimmune: None GI: None : Retention, Renal insuffiency, Other HEENT: None Derm: None - Past Surgical History Past Surgical History: Yes - Present Medications Home Medications: Ambulatory Orders Medication Instructions Recorded Confirmed Aspirin [Aspirin EC] 81 mg PO DAILY 11/27/16 08/04/17 Atorvastatin Calcium [Lipitor] 80 mg PO DAILY 11/27/16 08/04/17 Cetirizine [ZyrTEC] 10 tab PO QPM 08/04/17 08/04/17 Finasteride 5 mg PO DAILY 08/04/17 08/04/17 amLODIPine [Norvasc] 5 mg PO DAILY #30 tablet 08/05/17 Cefuroxime Axetil [Cefuroxime] 250 mg PO BID #14 tablet 08/10/17 - Allergies Allergies/Adverse Reactions: Allergies Allergy/AdvReac Type Severity Reaction Status Date / Time No Known Drug Allergies Allergy Verified 01/10/18 10:53 - Social History Does the pt smoke?: No Smoking Status: Never smoker Does the pt drink ETOH?: Yes Does the pt have substance abuse?: No PD ED PE NORMAL - Vitals Vital signs reviewed: Yes - General General: Alert and oriented X 3, No acute distress - HEENT HEENT: Moist mucous membranes - Neck Neck: Supple, no meningeal sign - Cardiac Cardiac: RRR, Strong equal pulses - Respiratory Respiratory: No respiratory distress, Clear bilaterally - Abdomen Abdomen: Soft, Non tender, Non distended - Derm Derm: Warm and dry - Extremities Extremities: No edema - Neuro Neuro: Alert and oriented X 3 - Psych Psych: Normal mood, Normal affect Results - Vitals Vitals: Vital Signs - 24 hr 01/10/18 01/10/18 01/10/18 10:51 11:17 12:44 Temperature 36.4 C L Heart Rate 74 77 72 Respiratory 18 16 19 Rate Blood Pressure 147/67 H 139/59 H 137/57 H O2 Saturation 97 98 98 Oxygen O2 Source Room air - EKG (time done) 1102 Rate: Rate (enter#) (75) Rhythm: NSR (sinus arrhythmia) [place]: Other (LAFB) Intervals: RBBB Compare to prior EKG: Unchanged from prior EKG (08/10/17) - Labs Labs: Laboratory Tests 01/10/18 01/10/18 01/10/18 11:13 11:13 11:30 WBC 11.5 H RBC 2.99 L Hgb 9.4 L Hct 28.5 L MCV 95.2 H MCH 31.5 H MCHC 33.1 RDW 14.6 Plt Count 352 MPV 8.3 Neut # (Auto) 6.1 Lymph # (Auto) 3.9 H [place] # (Auto) 0.8 Eos # (Auto) 0.6 Baso # (Auto) 0.1 Absolute Nucleated RBC 0.00 Nucleated RBC % 0.0 Sodium 140 Potassium 3.9 Chloride 107 Carbon Dioxide 23 Anion Gap 10.0 BUN 59 H Creatinine 4.6 H Estimated GFR (MDRD) 12 L Glucose 157 H Calcium 7.9 L Total Bilirubin 0.6 AST 25 ALT 35 Alkaline Phosphatase 97 Total Protein 6.9 Albumin 2.7 L Globulin 4.2 Albumin/Globulin Ratio 0.6 L Lipase 46 Urine Color YELLOW Urine Clarity CLOUDY Urine pH 6.5 Ur Specific [place] 1.020 Urine Protein 100 H Urine Glucose (UA) NEGATIVE Urine Ketones NEGATIVE Urine Occult Blood MODERATE H Urine Nitrite NEGATIVE Urine Bilirubin NEGATIVE Urine Urobilinogen 0.2 (NORMAL) Ur Leukocyte Esterase LARGE H Urine RBC 6-10 H Urine WBC >25 H Ur Squamous Epith Cells RARE Squamous Amorphous Sediment Rare Urine Bacteria Few Ur Microscopic Review INDICATED Urine Culture Comments INDICATED PD MEDICAL DECISION MAKING - ED course Complexity details: reviewed results, re-evaluated patient, considered differential, d/w patient ED course: Patient is an 87-year-old male sent in for an elevated potassium on outpatient blood draw. Repeat potassium is normal. No EKG changes. We will have him follow-up with his doctor for further care. Patient counseled regarding signs and symptoms for which I believe and urgent re-evaluation would be necessary. Patient with good understanding of and agreement to plan and is comfortable going home at this time This document was made in part using voice recognition software. While efforts are made to proofread this document, sound alike and grammatical errors may occur. Departure - Departure Disposition: 01 Home, Self Care Clinical Impression: Abnormal laboratory test result Condition: Good Follow-Up: Nehemiah Pascual DDS [Primary Care Provider] - Comments: Your repeat potassium is normal today. Follow-up with your doctor for further care. It is 3.9 today Discharge Date/Time: 01/10/18 12:47
[2018-01-10 11:23] LABS: BASOPHILS # (AUTO) 0.1 10^3/uL (0.0-0.1); BASOPHILS % (AUTO) 0.5 %; EOSINOPHILS # (AUTO) 0.6 10^3/uL (0.0-0.7); EOSINOPHILS % (AUTO) 5.1 %; HGB - HEMOGLOBIN 9.4 g/dL (14.0-18.0); LYMPHOCYTES # (AUTO) 3.9 10^3/uL (1.5-3.5); LYMPHOCYTES % (AUTO) 34.2 %; MEAN CORPUSCULAR HEMOGLOBIN 31.5 pg (27.0-31.0); MEAN CORPUSCULAR HGB CONC 33.1 g/dL (32.0-36.0); MEAN CORPUSCULAR VOLUME 95.2 fL (80.0-94.0); MEAN PLATELET VOLUME 8.3 fL (7.4-11.4); MONOCYTES # (AUTO) 0.8 10^3/uL (0.0-1.0); MONOCYTES % (AUTO) 7.2 %; NEUTROPHILS # (AUTO) 6.1 10^3/uL (1.5-6.6); PLT - PLATELET COUNT 352 10^3/uL (130-450); RED BLOOD COUNT 2.99 10^6/uL (4.70-6.10); RED CELL DISTRIBUTION WIDTH 14.6 % (12.0-15.0); WHITE BLOOD COUNT 11.5 x10^3/uL (4.8-10.8)
[2018-01-10 11:36] LABS: BILIRUBIN,URINE NEGATIVE (NEGATIVE); GLUCOSE, URINE (UA) NEGATIVE (NEGATIVE); KETONES,URINE (UA) NEGATIVE (NEGATIVE); LEUKOCYTE ESTERASE, URINE LARGE (NEGATIVE); NITRITE,URINE NEGATIVE (NEGATIVE); OCCULT BLOOD,URINE MODERATE (NEGATIVE); PH,URINE 6.5 PH (5.0-7.5); PROTEIN,URINE 100 mg/dL (NEGATIVE); UROBILINOGEN,URINE 0.2 (NORMAL) E.U./dL (NORMAL)
[2018-01-10 11:37] LABS: ALBUMIN 2.7 g/dL (3.2-5.5); ALBUMIN/GLOBULIN RATIO 0.6 (1.0-2.2); BILIRUBIN,TOTAL 0.6 mg/dL (0.2-1.0); CALCIUM 7.9 mg/dL (8.5-10.3); CREATININE 4.6 mg/dL (0.6-1.2); TOTAL PROTEIN 6.9 g/dL (6.7-8.2)
[2018-01-10 11:41] LABS: CLARITY,URINE CLOUDY (CLEAR)
[2018-01-10 11:54] LABS: AMORPHOUS SEDIMENT,UR Rare /LPF; BACTERIA,URINE Few /HPF (None Seen); SQUAMOUS EPITHELIAL CELL,UR RARE Squamous (<= Few)
[2018-01-10 12:44] VITALS: BP 137/57
== END 2018-01-10 12:47 | disposition home or self-care (01) ==
LOC: ED 10:45
DX: R79.9 Abnormal finding of blood chemistry, unspecified (principal); I12.9 Hypertensive chronic kidney disease with stage 1 through stage 4 chronic kidney disease, or unspecified chronic kidney disease; N18.9 Chronic kidney disease, unspecified
CPT/HCPCS: 36415; 80053; 81001; 81003; 83690; 85025; 87077; 87086; 87181; 93005; 99283; 99284

== ENCOUNTER 2018-02-05 11:39 | Outpatient (CLI) | payer MEDICARE, OTHER ==
[2018-02-05 12:21] LABS: BASOPHILS # (AUTO) 0.1 10^3/uL (0.0-0.1); BASOPHILS % (AUTO) 0.4 %; EOSINOPHILS % (AUTO) 0.1 %; HGB - HEMOGLOBIN 9.2 g/dL (14.0-18.0); LYMPHOCYTES % (AUTO) 9.8 %; MEAN CORPUSCULAR HEMOGLOBIN 31.2 pg (27.0-31.0); MEAN CORPUSCULAR HGB CONC 32.6 g/dL (32.0-36.0); MEAN CORPUSCULAR VOLUME 95.5 fL (80.0-94.0); MEAN PLATELET VOLUME 8.8 fL (7.4-11.4); MONOCYTES # (AUTO) 1.5 10^3/uL (0.0-1.0); MONOCYTES % (AUTO) 5.1 %; NEUTROPHILS # (AUTO) 25.6 10^3/uL (1.5-6.6); NEUTROPHILS % (AUTO) 84.6 %; PLT - PLATELET COUNT 322 10^3/uL (130-450); RED BLOOD COUNT 2.94 10^6/uL (4.70-6.10); RED CELL DISTRIBUTION WIDTH 14.9 % (12.0-15.0); WHITE BLOOD COUNT 30.3 x10^3/uL (4.8-10.8)
[2018-02-05 12:42] LABS: RBC MORPHOLOGY (MULTIPLE) 2+ ANISOCYTOSIS (NORMAL)
[2018-02-05 13:08] LABS: ALBUMIN 2.3 g/dL (3.2-5.5); CALCIUM 7.3 mg/dL (8.5-10.3); CREATININE 3.5 mg/dL (0.6-1.2); PHOSPHORUS 2.6 mg/dL (2.5-4.6)
== END 2018-02-05 11:40 | disposition home or self-care (01) ==
LOC: LAB 11:39
PROVIDERS: ATTEND Internal Medicine Nephrology
DX: N17.9 Acute kidney failure, unspecified (principal); N18.3 Chronic kidney disease, stage 3 (moderate)
CPT/HCPCS: 36415; 80069; 85025

== ENCOUNTER 2018-03-08 12:01 | Outpatient (CLI) | payer OTHER ==
[2018-03-08 12:23] LABS: CALCIUM 8.1 mg/dL (8.5-10.3); CREATININE 4.9 mg/dL (0.6-1.2)
== END 2018-03-08 12:02 | disposition home or self-care (01) ==
LOC: LAB 12:01
DX: N18.4 Chronic kidney disease, stage 4 (severe) (principal); N13.5 Crossing vessel and stricture of ureter without hydronephrosis; R33.9 Retention of urine, unspecified
CPT/HCPCS: 36415; 80048

== ENCOUNTER 2018-04-16 10:36 | Outpatient (CLI) | payer OTHER ==
[2018-04-17 13:13] LABS: HEPATITIS B SURFACE ANTIGEN NON-REACTIVE (NON-REACTIVE)
== END 2018-04-16 10:37 | disposition home or self-care (01) ==
LOC: LAB 10:36
PROVIDERS: ATTEND Internal Medicine Nephrology
DX: B19.10 Unspecified viral hepatitis B without hepatic coma (principal)
CPT/HCPCS: 36415; 86317; 86704; 87340

== ENCOUNTER 2018-04-17 13:50 | Outpatient (CLI) | payer OTHER ==
--- NOTE | 2018-04-17 15:53 | XRAY Report ---
Reason: HYPERKALEMIA Procedure Date: 04/17/2018 Accession Number: [id number] / [id number] Procedure: XR - Chest 2 View X-Ray CPT Code: 89000 FULL RESULT: EXAM: CHEST RADIOGRAPHY EXAM DATE: 04/17/2018 02:24 PM. CLINICAL HISTORY: HYPERKALEMIA. COMPARISON: None. TECHNIQUE: 2 views. FINDINGS: Lungs/Pleura: Lung volumes are somewhat low. No focal opacities evident. No pleural effusion. No pneumothorax. Normal volumes. Mediastinum: Heart size is at the upper range of normal. Mildly tortuous, calcified aorta. Other: Right IJ dialysis catheter terminates at the lower SVC region. No convincing acute osseous abnormality. Chronic appearing mild mid thoracic vertebral wedging. IMPRESSION: No convincing acute cardiopulmonary abnormality. RADIA
== END 2018-04-17 13:51 | disposition home or self-care (01) ==
LOC: DI 13:50
PROVIDERS: ATTEND Internal Medicine
DX: E87.5 Hyperkalemia (principal); N17.9 Acute kidney failure, unspecified
CPT/HCPCS: 71046

== ENCOUNTER 2018-08-15 11:24 | Emergency (ER) | payer MEDICARE, OTHER ==
--- NOTE | 2018-08-15 12:57 | ED Physician Documentation ---
PD HPI MALE - Stated complaint Stated Complaint: UNABLE TO URINATE - Chief complaint Chief Complaint: General - History obtained from History obtained from: Patient - History of Present Illness Timing - details: Still present Associated symptoms: Unable to urinate Recently seen: Clinic (Urology clinic yesterday.) - Additional information Additional information: The patient is an 88-year-old male who presents with abdominal pain and inability to urinate. He was seen by his urologist yesterday and a Ann catheter that he had been using was removed, along with removal of ureteral stents. He has not urinated since the catheter was removed yesterday. He has had Ann catheters for about the past 6 months. He has a history of renal failure and is on dialysis. He dialyzed this morning. He denies fever, nausea or vomiting. Review of Systems Constitutional: denies: Fever Nose: denies: Congestion Cardiac: denies: Chest pain / pressure Respiratory: denies: Dyspnea, Cough GI: reports: Abdominal Pain. denies: Nausea, Vomiting : reports: Unable to Void Skin: denies: Rash Musculoskeletal: denies: Extremity pain Neurologic: denies: Headache PD PAST MEDICAL HISTORY - Past Medical History Cardiovascular: Hypertension, High cholesterol Respiratory: None Neuro: None Endocrine/Autoimmune: None GI: None : Dialysis, Retention, Renal insuffiency, Other HEENT: None Derm: None - Past Surgical History Past Surgical History: Yes Ortho: Hip replacement - Present Medications Home Medications: Ambulatory Orders Medication Instructions Recorded Confirmed Atorvastatin Calcium [Lipitor] 80 mg PO DAILY 11/27/16 08/15/18 Cetirizine [ZyrTEC] 10 tab PO QPM 08/04/17 08/15/18 Finasteride 5 mg PO DAILY 08/04/17 08/15/18 amLODIPine [Norvasc] 5 mg PO DAILY #30 tablet 08/05/17 08/15/18 Amox/Clav 500/125 [Augmentin 1 tab ORAL 08/15/18 500/125] Ascorbic Acid [Vitamin C] 250 mg ORAL DAILY 08/15/18 08/15/18 Calcium Carbonate [Antacid] 1 tab ORAL BID 08/15/18 08/15/18 Cholecalciferol (Vitamin D3) 1 tab ORAL DAILY 08/15/18 08/15/18 [Vitamin D3] Nitrofurantoin Monohyd/M-Cryst 100 mg PO BID #10 capsule 08/15/18 [Macrobid 100 mg Capsule] - Allergies Allergies/Adverse Reactions: Allergies Allergy/AdvReac Type Severity Reaction Status Date / Time No Known Drug Allergies Allergy Verified 08/15/18 11:39 - Social History Does the pt smoke?: No Smoking Status: Never smoker Does the pt drink ETOH?: Yes Does the pt have substance abuse?: No - Immunizations Immunizations are current?: Yes - POLST Patient has POLST: Yes PD ED PE NORMAL - Vitals Vital signs reviewed: Yes (normal) - General General: Alert and oriented X 3, Well developed/nourished, Other (Pleasant elderly male who appears uncomfortable.) - HEENT HEENT: Atraumatic, Moist mucous membranes - Neck Neck: No adenopathy, No JVD - Cardiac Cardiac: RRR - Respiratory Respiratory: No respiratory distress, Clear bilaterally - Abdomen Abdomen: Soft, Other (Distended bladder with associated tenderness to palpation.) - Back Back: No CVA TTP - Derm Derm: No rash - Extremities Extremities: No edema, No calf tenderness / cord - Neuro Neuro: Alert and oriented X 3, No motor deficit, Normal speech Results - Vitals Vitals: Vital Signs - 24 hr 08/15/18 08/15/18 08/15/18 11:33 11:53 14:43 Temperature 36.8 C 36.6 C 36.3 C L Heart Rate 87 65 65 Respiratory 16 18 24 Rate Blood Pressure 138/64 H 150/58 H 119/59 L O2 Saturation 95 94 96 Oxygen O2 Source Room air - Labs Labs: Laboratory Tests 08/15/18 13:36 Urine Color YELLOW Urine Clarity CLOUDY Urine pH 8.5 H Ur Specific [place] 1.015 Urine Protein 100 H Urine Glucose (UA) NEGATIVE Urine Ketones NEGATIVE Urine Occult Blood LARGE H Urine Nitrite NEGATIVE Urine Bilirubin NEGATIVE Urine Urobilinogen 0.2 (NORMAL) Ur Leukocyte Esterase LARGE H Urine RBC TNTC H Urine WBC >25 H Urine WBC Clumps PRESENT Ur Squamous Epith Cells NONE SEEN Urine Bacteria Many H Ur Microscopic Review INDICATED Urine Culture Comments INDICATED PD MEDICAL DECISION MAKING - ED course Complexity details: reviewed results, re-evaluated patient, considered differential, d/w patient, d/w family ED course: The patient's presentation is significant for acute urinary retention 1 day after having a Ann catheter removed. His urine is cloudy and positive for pyuria and bacteriuria. His presentation does not suggest pyelonephritis nor sepsis. Treatment in the emergency department included insertion of a Ann catheter which provided prompt relief of his discomfort. Macrobid 100 mg was administered orally. He is being discharged with a prescription for Macrobid. He is being discharged with a Ann catheter left in place with a leg bag. I discussed with him and his the importance of outpatient follow-up, as well as potentially worrisome signs or symptoms that should prompt reevaluation in the emergency department. Departure - Departure Disposition: 01 Home, Self Care Clinical Impression: Acute urinary retention Urinary tract infection Qualifiers: Urinary tract infection type: acute cystitis Hematuria presence: with hematuria Qualified Code(s): N30.01 - Acute cystitis with hematuria Condition: Stable Instructions: ED UTI Cystitis Male, ED Catheter Care Ann Follow-Up: Adeola Dinero MD [Primary Care Provider] - Nehemiah Pascual MD [Physician No Access] - Prescriptions: Nitrofurantoin Monohyd/M-Cryst [Macrobid 100 mg Capsule] 100 mg PO BID #10 capsule Comments: Take Macrobid twice daily as prescribed. Keep the Ann bag lower than your pelvis at all times. Follow-up with your primary physician or your urologist next week as planned. Return to the emergency department if you develop increasing abdominal pain, fever with shaking chills, persistent vomiting, or otherwise worsening symptoms.
[2018-08-15 13:52] LABS: BILIRUBIN,URINE NEGATIVE (NEGATIVE); GLUCOSE, URINE (UA) NEGATIVE (NEGATIVE); KETONES,URINE (UA) NEGATIVE (NEGATIVE); LEUKOCYTE ESTERASE, URINE LARGE (NEGATIVE); NITRITE,URINE NEGATIVE (NEGATIVE); OCCULT BLOOD,URINE LARGE (NEGATIVE); PH,URINE 8.5 PH (5.0-7.5); PROTEIN,URINE 100 mg/dL (NEGATIVE); UROBILINOGEN,URINE 0.2 (NORMAL) E.U./dL (NORMAL)
[2018-08-15 13:54] LABS: CLARITY,URINE CLOUDY (CLEAR)
[2018-08-15 14:10] LABS: BACTERIA,URINE Many /HPF (None Seen); RBC,URINE TNTC /HPF (0-5); SQUAMOUS EPITHELIAL CELL,UR NONE SEEN (<= Few); WBC CLUMPS,URINE PRESENT
[2018-08-15 14:44] VITALS: BP 119/59
[2018-08-15] MEDS ORDERED: NITROFURANTOIN MACRO 100 MG CAPSULE PO STA (14:45)
== END 2018-08-15 15:07 | disposition home or self-care (01) ==
LOC: ED 11:24
DX: R33.9 Retention of urine, unspecified (principal); N30.01 Acute cystitis with hematuria; I12.9 Hypertensive chronic kidney disease with stage 1 through stage 4 chronic kidney disease, or unspecified chronic kidney disease; N18.9 Chronic kidney disease, unspecified; Z99.2 Dependence on renal dialysis
CPT/HCPCS: 51702; 81001; 87086; 99283; A9270; 81003

== ENCOUNTER 2019-03-04 11:08 | Outpatient (CLI) | payer MEDICARE, OTHER ==
--- NOTE | 2019-03-05 09:30 | XRAY Report ---
Reason: 0PLEURAL EFFUSION Procedure Date: 03/04/2019 Accession Number: [id number] / [id number] Procedure: XR - Chest 2 View X-Ray CPT Code: 85162 Final Report FULL RESULT: EXAM: CHEST RADIOGRAPHY EXAM DATE: 03/04/2019 11:45 AM. CLINICAL HISTORY: 0PLEURAL EFFUSION. COMPARISON: CHEST 2 VIEW 04/17/2018 2:34 PM. TECHNIQUE: 2 views. FINDINGS: Lungs/Pleura: No focal consolidation evident. No pleural effusion. No pneumothorax. Mild bibasilar atelectasis and/or scarring. Mediastinum: Dense atherosclerotic aortic calcification. Tortuous thoracic aorta. Other: Mid-upper thoracic kyphosis. IMPRESSION: 1. Mild bibasilar atelectasis and or scarring appearing similar to prior chest x-ray. 2. No focal consolidation or pleural effusion evident. RADIA
== END 2019-03-04 11:09 | disposition home or self-care (01) ==
LOC: DI 11:08
PROVIDERS: ATTEND Internal Medicine Nephrology
DX: J90 Pleural effusion, not elsewhere classified (principal)
CPT/HCPCS: 71046

== ENCOUNTER 2019-05-06 04:49 | Emergency (ER) | payer MEDICARE, OTHER ==
[2019-05-06] MEDS ORDERED: IPRATROPIUM/ALBUTEROL 3 ML NEB INH STA (05:13)
--- NOTE | 2019-05-06 06:13 | ED Physician Documentation ---
PD HPI DYSPNEA - Stated complaint Stated Complaint: COUGHING - Chief complaint Chief Complaint: Resp - History obtained from History obtained from: Patient, Family (spouse) - History of Present Illness Timing - onset: How many months ago (2) Timing - details: Intermittant, Waxing and waning Pain level max: 0 Pain level now: 0 Improved by: Other (improved with previous courses of antibiotics) Worsened by: Laying flat, Coughing Associated symptoms: Cough. No: Fever, Wheezing, Palpitations - Additional information Additional information: c/o 2-3 months of cough. he says he has been evaluated several times in outpatient setting for this without clear diagnosis. he has had some relief with recently prescribed inhaler and also seemed to improve with antibiotics. he does not feel short of breath except when he is coughing. also worse with lying supine. he was due for hemodialysis 5AM this morning but instead came to ED Review of Systems Constitutional: reports: Reviewed and negative Cardiac: reports: Reviewed and negative Respiratory: reports: Dyspnea, Cough. denies: Wheezing GI: reports: Reviewed and negative PD PAST MEDICAL HISTORY - Past Medical History Cardiovascular: Hypertension, High cholesterol Respiratory: None Neuro: None Endocrine/Autoimmune: None GI: None : Dialysis, Retention, Renal insuffiency, Other HEENT: None Derm: None - Past Surgical History Past Surgical History: Yes Ortho: Hip replacement - Present Medications Home Medications: Ambulatory Orders Medication Instructions Recorded Confirmed Atorvastatin Calcium [Lipitor] 80 mg PO DAILY 11/27/16 08/15/18 Cetirizine [ZyrTEC] 10 tab PO QPM 08/04/17 08/15/18 Finasteride 5 mg PO DAILY 08/04/17 08/15/18 amLODIPine [Norvasc] 5 mg PO DAILY #30 tablet 08/05/17 08/15/18 Amox/Clav 500/125 [Augmentin 1 tab ORAL 08/15/18 500/125] Ascorbic Acid [Vitamin C] 250 mg ORAL DAILY 08/15/18 08/15/18 Calcium Carbonate [Antacid] 1 tab ORAL BID 08/15/18 08/15/18 Cholecalciferol (Vitamin D3) 1 tab ORAL DAILY 08/15/18 08/15/18 [Vitamin D3] Nitrofurantoin Monohyd/M-Cryst 100 mg PO BID #10 capsule 08/15/18 [Macrobid 100 mg Capsule] Albuterol Sulf [Ventolin Hfa 1 - 2 puffs INH Q4HR PRN #1 inhaler 05/06/19 Inhaler] Azithromycin [Zithromax] 250 mg PO DAILY #4 tablet 05/06/19 - Allergies Allergies/Adverse Reactions: Allergies Allergy/AdvReac Type Severity Reaction Status Date / Time No Known Drug Allergies Allergy Verified 08/15/18 11:39 - Social History Does the pt smoke?: No Smoking Status: Never smoker Does the pt drink ETOH?: Yes Does the pt have substance abuse?: No - Immunizations Immunizations are current?: Yes - POLST Patient has POLST: Yes PD ED PE NORMAL - Vitals Vital signs reviewed: Yes - General General: Alert and oriented X 3, No acute distress, Well developed/nourished - HEENT HEENT: Moist mucous membranes - Cardiac Cardiac: RRR - Respiratory Respiratory: No respiratory distress - Derm Derm: Normal color, Warm and dry PD ED PE EXPANDED - Cardiac Cardiac: Murmur Present (05/22) - Respiratory Respiratory: Rales - Extremities Extremities: Pedal edema bilateral Results - Vitals Vitals: Oxygen O2 Source Room air PD MEDICAL DECISION MAKING - ED course Complexity details: considered differential, d/w patient, d/w family ED course: NAD. episodic [employer]PER[employer] cough while in ED. bilateral rales and bilateral pedal edema, overdue for HD this morning. as he is not in apparent distress and exam is c/w fluid overload, and considering that, per patient, he has already had cxr x 2 and blood tests for same c/o without diagnostic results, my recommendation was that he go to his HD and reassess how he feels after the session. I encouraged him to return if HD does not result in adequate improvement, as well as if he has any other concerning signs or symptoms such as fever, chest pain, hemoptysis. as emergent testing will not be performed at this time (in the interest of getting patient to his HD session), will cover for possible infectious cause with abx Departure - Departure Disposition: Home, Self Care Clinical Impression: Dyspnea Qualifiers: Dyspnea type: unspecified Qualified Code(s): R06.00 - Dyspnea, unspecified Condition: Good Instructions: ED Dyspnea Shortness of Breath Prescriptions: Albuterol Sulf [Ventolin Hfa Inhaler] 1 - 2 puffs INH Q4HR PRN #1 inhaler PRN Reason: Shortness Of Air/Wheezing Azithromycin [Zithromax] 250 mg PO DAILY #4 tablet Discharge Date/Time: 05/06/19 06:54
[2019-05-06 06:42] VITALS: BP 130/50
[2019-05-06] MEDS ORDERED: AZITHROMYCIN 250 MG TABLET PO STA (06:46)
== END 2019-05-06 06:54 | disposition home or self-care (01) ==
LOC: ED 04:49
DX: R06.00 Dyspnea, unspecified (principal); I12.0 Hypertensive chronic kidney disease with stage 5 chronic kidney disease or end stage renal disease; N18.6 End stage renal disease; Z99.2 Dependence on renal dialysis
CPT/HCPCS: 94640; 99283; 99284; A9270

== ENCOUNTER 2019-05-30 10:35 | Outpatient (CLI) | payer MEDICARE, OTHER ==
--- NOTE | 2019-05-31 06:56 | CT Report ---
Reason: INTERSTITIAL PULMONARY DISEASE, UNSPECIFIED Procedure Date: 05/30/2019 Accession Number: [id number] / [id number] Procedure: CT - CHEST WO CPT Code: Final Report FULL RESULT: EXAM: CT CHEST EXAM DATE: 05/30/2019 11:27 AM. CLINICAL HISTORY: INTERSTITIAL PULMONARY DISEASE, UNSPECIFIED. COMPARISONS: CHEST 2 VIEW 03/04/2019 11:39 AM. TECHNIQUE: Routine helical CT imaging was performed through the chest. IV contrast: None. Reconstructions: Coronal and sagittal. In accordance with CT protocol optimization, one or more of the following dose reduction techniques were utilized for this exam: automated exposure control, adjustment of mA and/or KV based on patient size, or use of iterative reconstructive technique. FINDINGS: Lungs/Pleura: No significant interlobular septal thickening, bronchiectasis, or honeycombing. Small bilateral pleural effusions associated with mild dependent atelectasis in the posterior basal segments of both lower lobes. Patchy airspace disease in the superior segment of the right lower lobe. Mediastinum: Heart size within normal limits. Atherosclerotic coronary artery calcifications. Aortic valve annular calcifications. No pericardial effusions. No mediastinal or hilar lymphadenopathy. Thoracic aorta: Extensive atherosclerotic plaquing of the thoracic aorta without aneurysmal dilatation. Bones: Decreased osseous mineralization subjectively. No bony destructive lesions. Visualized Abdomen: No significant focal lesions. Other: Bilateral gynecomastia. Nonspecific mildly prominent axillary lymph nodes bilaterally. IMPRESSION: 1. No significant interstitial lung disease. 2. Small bilateral pleural effusions associated with mild dependent atelectasis in the posterior basal segments of both lower lobes. 3. More patchy airspace disease in the superior segment of the right lower lobe. Differential diagnosis includes atelectasis versus infiltrate. 4. Extensive atherosclerotic plaquing of the thoracic aorta without aneurysmal dilatation. 5. Decreased osseous mineralization. 6. Nonspecific mildly prominent axillary nodes bilaterally. 7. Bilateral gynecomastia. RADIA
== END 2019-05-30 10:36 | disposition home or self-care (01) ==
LOC: DI 10:35
PROVIDERS: ATTEND Internal Medicine
DX: J90 Pleural effusion, not elsewhere classified (principal); J98.11 Atelectasis; R91.8 Other nonspecific abnormal finding of lung field; I70.0 Atherosclerosis of aorta; R59.0 Localized enlarged lymph nodes; N62 Hypertrophy of breast
CPT/HCPCS: 71250

== ENCOUNTER 2019-06-03 12:57 | Emergency (ER) | payer MEDICARE, OTHER ==
[2019-06-03] MEDS ORDERED: SODIUM CHLORIDE 0.9% 1,000 ML IV ONE (13:56)
--- NOTE | 2019-06-03 13:59 | ED Physician Documentation ---
History of Present Illness - Stated complaint Stated Complaint: COUGH,WEAKNESS - Chief complaint Chief Complaint: Resp - History obtained from History obtained from: Patient - History of Present Illness Timing: How many weeks ago (1) - Additonal information Additional information: 88-year-old male with a history of renal failure on dialysis has developed a cough over the past 2 to 3 months. He has had some intermittent improvement with some antibiotic and an inhaler and over the past week he has become weak. He is able to get up and do his dialysis this morning and each time he is going to try to do something he is weaker and weaker his legs are not supporting him. He does live alone. He has had some issues with urinary retention he has a Ann catheter in place chronically he has had his stents removed. He is on dialysis and dialyzed this morning. Review of Systems Constitutional: reports: Fatigue. denies: Fever, Chills Eyes: denies: Decreased vision Ears: denies: Ear pain Nose: reports: Congestion. denies: Rhinorrhea / runny nose Throat: denies: Sore throat Cardiac: denies: Chest pain / pressure, Palpitations Respiratory: reports: Dyspnea, Cough GI: denies: Abdominal Pain, Nausea, Vomiting : denies: Dysuria Skin: reports: Rash Musculoskeletal: denies: Neck pain, Back pain, Extremity pain Neurologic: reports: Generalized weakness. denies: Focal weakness, Numbness PD PAST MEDICAL HISTORY - Past Medical History Past Medical History: Yes Cardiovascular: Hypertension, High cholesterol Respiratory: None Neuro: None Endocrine/Autoimmune: None GI: None : Dialysis, Retention, Renal insuffiency, Other HEENT: None Derm: None - Past Surgical History Past Surgical History: Yes Ortho: Hip replacement - Present Medications Home Medications: Ambulatory Orders Medication Instructions Recorded Confirmed Atorvastatin Calcium [Lipitor] 80 mg PO DAILY 11/27/16 08/15/18 Cetirizine [ZyrTEC] 10 tab PO QPM 08/04/17 08/15/18 Finasteride 5 mg PO DAILY 08/04/17 08/15/18 amLODIPine [Norvasc] 5 mg PO DAILY #30 tablet 08/05/17 08/15/18 Amox/Clav 500/125 [Augmentin 1 tab ORAL 08/15/18 500/125] Ascorbic Acid [Vitamin C] 250 mg ORAL DAILY 08/15/18 08/15/18 Calcium Carbonate [Antacid] 1 tab ORAL BID 08/15/18 08/15/18 Cholecalciferol (Vitamin D3) 1 tab ORAL DAILY 08/15/18 08/15/18 [Vitamin D3] Nitrofurantoin Monohyd/M-Cryst 100 mg PO BID #10 capsule 08/15/18 [Macrobid 100 mg Capsule] Albuterol Sulf [Ventolin Hfa 1 - 2 puffs INH Q4HR PRN #1 inhaler 05/06/19 Inhaler] Azithromycin [Zithromax] 250 mg PO DAILY #4 tablet 05/06/19 - Allergies Allergies/Adverse Reactions: Allergies Allergy/AdvReac Type Severity Reaction Status Date / Time No Known Drug Allergies Allergy Verified 06/03/19 13:11 - Social History Does the pt smoke?: No Smoking Status: Never smoker Does the pt drink ETOH?: Yes Does the pt have substance abuse?: No - Immunizations Immunizations are current?: Yes - POLST Patient has POLST: Yes PD ED PE NORMAL - Vitals Vital signs reviewed: Yes (wide pulse pressure) - General General: No acute distress, Well developed/nourished, Other (88-year-old male with a brim of his hat pulled down over his eyes is not struggling to breathe if he does get up and move around much she does have persistent coughing. He is interactive falls asleep easily.) - HEENT HEENT: Atraumatic, Ears normal (with cerumen bilat), Other (dry mucous membranes) - Neck Neck: Supple, no meningeal sign, No bony TTP - Cardiac Cardiac: RRR, Other (2/6 holosystolic murmer at LSB) - Respiratory Respiratory: No respiratory distress, Other (rhonchi bibasilar) - Abdomen Abdomen: Soft, Non tender - Back Back: No CVA TTP, No spinal TTP - Derm Derm: Other (bright red skin scaly. ) - Extremities Extremities: No deformity, Other (edema pitting is present bilat) - Neuro Neuro: No motor deficit, No sensory deficit, Normal speech Eye Opening: Spontaneous Motor: Obeys Commands Verbal: Oriented GCS Score: 15 - Psych Psych: Normal mood, Normal affect Results - Vitals Vitals: Vital Signs - 24 hr 06/03/19 06/03/19 06/03/19 13:11 13:13 15:13 Temperature 37.0 C 37.0 C Heart Rate 80 80 77 Respiratory 14 14 28 H Rate Blood Pressure 140/57 H 140/57 H 129/51 L O2 Saturation 96 96 94 Oxygen O2 Source Room air - Labs Labs: Laboratory Tests 06/03/19 06/03/19 06/03/19 14:00 14:00 14:00 WBC 15.6 H RBC 3.52 L Hgb 12.4 L Hct 38.5 L MCV 109.4 H MCH 35.2 H MCHC 32.2 RDW 17.7 H Plt Count 32 L* MPV 15.0 H Neut # (Auto) Not Reportable Lymph # (Auto) Not Reportable Kinney # (Auto) Not Reportable Eos # (Auto) Not Reportable Baso # (Auto) Not Reportable Absolute Nucleated RBC Not Reportable Total Counted 100 Band Neuts % (Manual) 4 Reactive Lymphs % (Man) 1 Abnorm Lymph % (Manual) 0 Nucleated RBC % Not Reportable Neutrophils # (Manual) 9.7 H Lymphocytes # (Manual) 4.4 H Monocytes # (Manual) 1.4 H Eosinophils # (Manual) 0.2 Basophils # (Manual) 0.0 Differential Comment MANUAL DIFFERENTIAL Platelet Estimate DECREASED (<130,000) Platelet Morphology NORMAL APPEARANCE RBC Morph Micro Appear 2+ POIKILOCYTOSIS PT 12.4 INR 1.1 Sodium 137 Potassium 3.3 L Chloride 94 L Carbon Dioxide 28 Anion Gap 15.0 H BUN 28 H Creatinine 3.7 H Estimated GFR (MDRD) 16 L Glucose 123 H Lactic Acid Calcium 10.0 Phosphorus 4.0 Magnesium 2.2 Total Bilirubin 2.3 H AST 64 H ALT 33 Alkaline Phosphatase 277 H B-Natriuretic Peptide Total Protein 6.0 L Albumin 2.1 L Globulin 3.9 Albumin/Globulin Ratio 0.5 L Lipase 24 Influenza A (Rapid) Influenza B (Rapid) 06/03/19 06/03/19 06/03/19 14:00 14:00 15:00 WBC RBC Hgb Hct MCV MCH MCHC RDW Plt Count MPV Neut # (Auto) Lymph # (Auto) [place] # (Auto) Eos # (Auto) Baso # (Auto) Absolute Nucleated RBC Total Counted Band Neuts % (Manual) Reactive Lymphs % (Man) Abnorm Lymph % (Manual) Nucleated RBC % Neutrophils # (Manual) Lymphocytes # (Manual) Monocytes # (Manual) Eosinophils # (Manual) Basophils # (Manual) Differential Comment Platelet Estimate Platelet Morphology RBC Morph Micro Appear PT INR Sodium Potassium Chloride Carbon Dioxide Anion Gap BUN Creatinine Estimated GFR (MDRD) Glucose Lactic Acid 4.9 H* Calcium Phosphorus Magnesium Total Bilirubin AST ALT Alkaline Phosphatase B-Natriuretic Peptide 763 H Total Protein Albumin Globulin Albumin/Globulin Ratio Lipase Influenza A (Rapid) Negative Influenza B (Rapid) Negative - Rads (name of study) cxr Radiology: Prelim report reviewed (Impression: Development of bilateral infiltrates. ), EMP read indepedently, See rad report Procedures - IVC sono (time) 1350 Bedside IVC sono: IVC measures (cm) (1.68), IVC collapsed c insp (cm) (0.86), Euvolemia PD MEDICAL DECISION MAKING - ED course Complexity details: reviewed old records, reviewed results, re-evaluated patient, considered differential, d/w patient ED course: 88 y/o male on dialysis has a cough and weakness. He is normal volume on interrogation of the IVC. He was dialysed today and his numbers are good for BUN/Cr. BNP mildly elevated. He has rhonchi on exam. His chest x-ray shows bibasilar infiltrate white blood cell count is elevated he is not hypoxic or tachycardic. He has an elevated lactate. He will need close fluid management, antibiotic and potential dialysis. I have called his apartment leasing consultant to consider transfer. We have administered IV saline at 150m/hr. A bolus of 500ml, decadron and rocephin. Dr. Gleason the apartment leasing consultant at [facility] is consulted in the case and recommends transfer. Dr. alvarez of the hospitalist at [facility] accepts patient in transfer. Departure - Departure Disposition: 02 Transfer Acute Care Hosp Clinical Impression: Indwelling Ann catheter present Pneumonia Qualifiers: Pneumonia type: due to unspecified organism Laterality: bilateral Lung location: lower lobe of lung Qualified Code(s): J18.9 - Pneumonia, unspecified organism
[2019-06-03 14:19] LABS: BASOPHILS % (AUTO) 0.3 %; EOSINOPHILS % (AUTO) 3.8 %; HGB - HEMOGLOBIN 12.4 g/dL (14.0-18.0); LYMPHOCYTES % (AUTO) 13.1 %; MEAN CORPUSCULAR HEMOGLOBIN 35.2 pg (27.0-31.0); MEAN CORPUSCULAR HGB CONC 32.2 g/dL (32.0-36.0); MEAN CORPUSCULAR VOLUME 109.4 fL (80.0-94.0); NEUTROPHILS % (AUTO) 54.9 %; RED BLOOD COUNT 3.52 10^6/uL (4.70-6.10); RED CELL DISTRIBUTION WIDTH 17.7 % (12.0-15.0); WHITE BLOOD COUNT 15.6 x10^3/uL (4.8-10.8)
[2019-06-03 14:23] LABS: INR 1.1 (0.8-1.2); PT - PROTHROMBIN TIME 12.4 secs (9.9-12.6)
[2019-06-03 14:25] LABS: ABNORMAL LYMPHS % (MANUAL) 0 %
[2019-06-03 14:31] LABS: ALBUMIN 2.1 g/dL (3.2-5.5); ALBUMIN/GLOBULIN RATIO 0.5 (1.0-2.2); BILIRUBIN,TOTAL 2.3 mg/dL (0.2-1.0); CREATININE 3.7 mg/dL (0.6-1.2); MAGNESIUM 2.2 mg/dL (1.7-2.8)
--- NOTE | 2019-06-03 14:45 | XRAY Report ---
Reason: cough soa Procedure Date: 06/03/2019 Accession Number: [id number] / [id number] Procedure: XR - Chest 1 View X-Ray CPT Code: 10462 Final Report FULL RESULT: EXAM: CHEST RADIOGRAPHY EXAM DATE: 06/03/2019 02:35 PM. CLINICAL HISTORY: Cough SOB. COMPARISON: CHEST 2 VIEW 03/04/2019 11:39 AM. TECHNIQUE: 1 view. FINDINGS: Lungs/Pleura: Development of bilateral patchy infiltrates. Shallow lung volumes. Heart size upper limits of normal. Healed previous left clavicular fracture. IMPRESSION: Development of bilateral infiltrates. RADIA
[2019-06-03 14:52] LABS: BAND NEUTROPHILS % (MANUAL) 4 %; EOSINOPHILS # (MANUAL) 0.2 10^3/uL (0-0.7); LYMPHOCYTES # (MANUAL) 4.4 10^3/uL (1.5-3.5); LYMPHOCYTES % (MANUAL) 27 %; MONOCYTES # (MANUAL) 1.4 10^3/uL (0.0-1.0)
[2019-06-03 14:53] LABS: DIFFERENTIAL COMMENT MANUAL DIFFERENTIAL; PLATELET ESTIMATE, MANUAL DECREASED (<130,000) (NORMAL); PLATELET MORPHOLOGY NORMAL APPEARANCE (NORMAL)
[2019-06-03] MEDS ORDERED: cefTRIAXone 1 GM in SODIUM CHLORIDE 0.9% MINIBAG 100 ML IV STA (15:00)
[2019-06-03] MEDS ORDERED: DEXAMETHASONE 10 MG/ML VIAL IVP STA (15:00)
[2019-06-03] MEDS ORDERED: SODIUM CHLORIDE 0.9% 500 ML IV ONE (15:06)
[2019-06-03 15:44] LABS: PLT - PLATELET COUNT 32 10^3/uL (130-450)
[2019-06-03 17:34] VITALS: BP 138/61
== END 2019-06-03 18:41 | disposition short-term general hospital (02) ==
LOC: ED 12:57
DX: J18.9 Pneumonia, unspecified organism (principal); I12.0 Hypertensive chronic kidney disease with stage 5 chronic kidney disease or end stage renal disease; N18.6 End stage renal disease; Z96.0 Presence of urogenital implants
CPT/HCPCS: 36415; 71045; 80053; 81599; 83605; 83690; 83735; 83880; 84100; 85025; 85610; 87040; 87077; 87181; 87275; 87276; 96365; 96375; 99285

== ENCOUNTER 2019-06-03 18:43 | Outpatient (CLI) | payer MEDICARE, OTHER | END 2019-06-03 18:44 | disposition short-term general hospital (02) | LOC: EMS 18:43 | PROVIDERS: ATTEND Surgery | DX: J18.9 Pneumonia, unspecified organism (principal); N19 Unspecified kidney failure | CPT/HCPCS: A0425; A0426 ==

== ENCOUNTER 2019-06-24 09:54 | Outpatient (CLI) | payer MEDICARE, OTHER | END 2019-06-24 09:55 | disposition short-term general hospital (02) | LOC: EMS 09:54 | PROVIDERS: ATTEND Surgery | DX: R46.4 Slowness and poor responsiveness (principal); Z99.2 Dependence on renal dialysis | CPT/HCPCS: A0425; A0429 ==